=== PATIENT | female | born 1960 | race Caucasian/White ===

== ENCOUNTER → 2019-08-05 08:46 | Outpatient (BNVA) | payer MEDICARE, OTHER, SELFPAY | PROVIDERS: Family Provider Family Medicine; PCP Internal Medicine; Visit Provider Specialist | DX: G35 Multiple sclerosis (principal); Z87.891 Personal history of nicotine dependence | CPT/HCPCS: 36415; 96374; 96375; 96413; 96415; 99214; J1200; J2350; J2930; J7040 ==

== ENCOUNTER → 2019-11-07 10:04 | Outpatient (BNVA) | payer MEDICARE, OTHER, SELFPAY | PROVIDERS: Family Provider Internal Medicine; PCP Internal Medicine; Visit Provider Internal Medicine | DX: E11.9 Type 2 diabetes mellitus without complications (principal) | CPT/HCPCS: 83036 ==

== ENCOUNTER 2020-02-12 07:50 | Outpatient (CLI) | payer MEDICARE, OTHER, SELFPAY ==
[2020-02-12] MEDS: diphenhydrAMINE 50 mg/mL SDV 1mL 25 MG IVP (08:25)
[2020-02-12] MEDS: acetaminophen 500 mg Tablet 1000 MG PO (08:25)
== END 2020-02-12 07:51 | disposition home or self-care (01) ==
LOC: NSACUTE 07:51
PROVIDERS: Family Provider Internal Medicine; PCP Internal Medicine; Visit Provider Specialist
DX: G35 Multiple sclerosis (principal)
CPT/HCPCS: 96375; 99213; J1200; J2930

== ENCOUNTER → 2020-02-14 09:19 | Outpatient (BNVA) | payer MEDICARE, OTHER, SELFPAY | PROVIDERS: Family Provider Internal Medicine; PCP Internal Medicine; Visit Provider Internal Medicine | DX: E11.65 Type 2 diabetes mellitus with hyperglycemia (principal); G35 Multiple sclerosis; Z79.4 Long term (current) use of insulin; Z79.899 Other long term (current) drug therapy; Z87.891 Personal history of nicotine dependence | CPT/HCPCS: 80053; 80061; 82043; 83036; 84443; 85025 ==

== ENCOUNTER → 2020-05-21 10:53 | Outpatient (BNVA) | payer MEDICARE, OTHER, SELFPAY | PROVIDERS: Family Provider Internal Medicine; PCP Internal Medicine; Visit Provider Nurse Practitioner Family | DX: E10.9 Type 1 diabetes mellitus without complications (principal) | CPT/HCPCS: 83036 ==

== ENCOUNTER → 2020-08-03 08:27 | Outpatient (BNVA) | payer MEDICARE, OTHER, SELFPAY ==
[2020-08-03] MEDS: acetaminophen 500 mg Tablet 1000 MG PO (09:55)
[2020-08-03] MEDS: diphenhydrAMINE 50 mg/mL SDV 1mL 25 MG IVP (10:01)
== END ==
PROVIDERS: Family Provider Internal Medicine; PCP Internal Medicine; Visit Provider Specialist
DX: G35 Multiple sclerosis (principal)
CPT/HCPCS: 96365; 96366; 96375; 99214; J1200; J2350; J2930; J7040

== ENCOUNTER → 2020-08-20 09:51 | Outpatient (BNVA) | payer MEDICARE, SELFPAY | PROVIDERS: Family Provider Internal Medicine; PCP Internal Medicine; Visit Provider Internal Medicine | DX: E11.65 Type 2 diabetes mellitus with hyperglycemia (principal) | CPT/HCPCS: 80053; 80061; 83036; 85025 ==

== ENCOUNTER → 2020-08-21 09:00 | Outpatient (BNVA) | payer MEDICARE, SELFPAY | PROVIDERS: Family Provider Internal Medicine; PCP Internal Medicine; Visit Provider Internal Medicine | DX: E11.65 Type 2 diabetes mellitus with hyperglycemia (principal) | CPT/HCPCS: 84443 ==

== ENCOUNTER → 2020-11-20 09:43 | Outpatient (BNVA) | payer MEDICARE, SELFPAY | PROVIDERS: Family Provider Internal Medicine; PCP Internal Medicine; Visit Provider Nurse Practitioner Family | DX: E11.65 Type 2 diabetes mellitus with hyperglycemia (principal) | CPT/HCPCS: 83036 ==

== ENCOUNTER 2021-01-20 08:24 | Outpatient (CLI) | payer MEDICARE, SELFPAY ==
--- NOTE | 2021-01-20 08:48 | PC.NURSE ---
Dr. Maninder KU not to give solu-medrol d/t patient request for increased blood sugar levels.
[2021-01-20] MEDS: acetaminophen 500 mg Tablet 1000 MG PO (08:50)
[2021-01-20] MEDS: diphenhydrAMINE 50 mg/mL SDV 1mL 25 MG IVP (09:15)
== END 2021-01-20 08:25 | disposition home or self-care (01) ==
LOC: NSACUTE 08:31
PROVIDERS: Family Provider Internal Medicine; PCP Internal Medicine; Visit Provider Specialist
DX: G35 Multiple sclerosis (principal); E10.9 Type 1 diabetes mellitus without complications; G25.81 Restless legs syndrome; Z79.4 Long term (current) use of insulin
CPT/HCPCS: 96365; 96366; 96375; 99214; J1200; J2350; J7040

== ENCOUNTER → 2021-03-09 11:20 | Outpatient (BNVA) | payer MEDICARE, SELFPAY | PROVIDERS: Family Provider Internal Medicine; PCP Internal Medicine; Visit Provider Nurse Practitioner Family | DX: E11.65 Type 2 diabetes mellitus with hyperglycemia (principal); G25.81 Restless legs syndrome; Z79.899 Other long term (current) drug therapy | CPT/HCPCS: 80053; 80061; 82043; 83036; 84443; 85025 ==

== ENCOUNTER → 2021-06-10 10:07 | Outpatient (BNVA) | payer MEDICARE, SELFPAY | PROVIDERS: Family Provider Internal Medicine; PCP Internal Medicine; Visit Provider Internal Medicine | DX: E10.9 Type 1 diabetes mellitus without complications (principal) | CPT/HCPCS: 82043; 83036 ==

== ENCOUNTER 2021-07-19 09:35 | Outpatient (CLI) | payer MEDICARE, SELFPAY ==
[2021-07-19 10:00] VITALS: BP 145/85; PULSE 67; RESP 18; TEMP 36.7; O2SAT 99
[2021-07-19] MEDS: acetaminophen 500 mg Tablet 1000 MG PO (10:22)
[2021-07-19] MEDS: diphenhydrAMINE 50 mg/mL SDV 1mL 25 MG IVP (10:23)
[2021-07-19] MEDS: sodium chloride 0.9% 250 ML IV (10:27)
[2021-07-19 10:42] LABS: Ferritin 56 ng/mL (15-150); Iron 100 ug/dL (37-145); Percent Saturation 40.1 % (20-50); Total Iron Binding Capacity 249 mcg/dl; Unsaturated Iron Binding 149 ug/dL (112-347)
[2021-07-19 10:57] VITALS: BP 108/77; PULSE 67; RESP 18; TEMP 37; O2SAT 97
[2021-07-19 11:27] VITALS: BP 131/84; PULSE 61; RESP 16; TEMP 36.8; O2SAT 97
[2021-07-19 13:04] VITALS: BP 131/83; PULSE 67; RESP 18; TEMP 36.7; O2SAT 98
== END 2021-07-19 09:36 | disposition home or self-care (01) ==
PROVIDERS: PCP Family Medicine; Visit Provider Specialist
DX: G35 Multiple sclerosis (principal); E10.9 Type 1 diabetes mellitus without complications; Z79.4 Long term (current) use of insulin
CPT/HCPCS: 82728; 83540; 83550; 96365; 96366; 96375; 99213; 99214; J1200; J2350; J7040; J7050

== ENCOUNTER → 2021-09-09 09:22 | Outpatient (BNVA) | payer MEDICARE, SELFPAY | PROVIDERS: PCP Family Medicine; Visit Provider Internal Medicine | DX: E11.65 Type 2 diabetes mellitus with hyperglycemia (principal) | CPT/HCPCS: 80053; 80061; 83036; 84443; 85025 ==

== ENCOUNTER 2022-01-17 08:58 | Outpatient (CLI) | payer MEDICARE, SELFPAY ==
[2022-01-17 10:00] VITALS: BP 145/79; PULSE 65; RESP 18; TEMP 36.5; O2SAT 97
[2022-01-17] MEDS: sodium chloride 0.9% 250 ML 50 ML IV (10:20)
[2022-01-17] MEDS: acetaminophen 500 mg Tablet 1000 MG PO (10:21)
[2022-01-17] MEDS: diphenhydrAMINE 50 mg/mL SDV 1mL 25 MG IVP (10:23)
[2022-01-17 11:05] VITALS: BP 151/72; PULSE 59; RESP 18; TEMP 36.7; O2SAT 97
[2022-01-17 11:37] VITALS: BP 146/72; PULSE 53; RESP 18; TEMP 36.7; O2SAT 97
[2022-01-17 13:24] VITALS: BP 151/74; PULSE 60; RESP 18; TEMP 36.6; O2SAT 99
== END 2022-01-17 08:59 | disposition home or self-care (01) ==
PROVIDERS: PCP Family Medicine; Referring Provider Specialist; Visit Provider Specialist
DX: G35 Multiple sclerosis (principal)
CPT/HCPCS: 96365; 96366; 96375; J1200; J2350; J7040; J7050

== ENCOUNTER 2022-04-08 06:00 | Outpatient (RCR) | payer MEDICARE, SELFPAY | END 2022-04-08 23:55 | disposition home or self-care (01) | LOC: SPT 06:00 | PROVIDERS: PCP Family Medicine; Visit Provider Internal Medicine | DX: G35 Multiple sclerosis (principal); M54.9 Dorsalgia, unspecified | CPT/HCPCS: 97110; 97140; 97162 ==

== ENCOUNTER 2022-04-09 06:00 | Outpatient (RCR) | payer MEDICARE, SELFPAY | END 2022-05-09 23:59 | disposition home or self-care (01) | LOC: SPT 06:00 | PROVIDERS: PCP Family Medicine; Visit Provider Internal Medicine | DX: G35 Multiple sclerosis (principal); M54.9 Dorsalgia, unspecified | CPT/HCPCS: 97110; 97112; 97140; 97535 ==

== ENCOUNTER → 2023-02-03 09:48 | Outpatient (BNVA) | payer MEDICARE, SELFPAY | PROVIDERS: PCP Internal Medicine; Visit Provider Specialist | DX: G35 Multiple sclerosis | CPT/HCPCS: 99214 ==

== ENCOUNTER 2023-09-18 06:00 | Outpatient (RCR) | payer MEDICARE, SELFPAY | END 2023-10-08 23:59 | disposition home or self-care (01) | LOC: GPT 06:00 | PROVIDERS: PCP Internal Medicine; Visit Provider Internal Medicine | DX: M54.31 Sciatica, right side (principal) | CPT/HCPCS: 97110; 97112; 97140; 97162 ==

== ENCOUNTER 2023-10-09 06:00 | Outpatient (RCR) | payer MEDICARE, SELFPAY | END 2023-11-07 23:59 | disposition home or self-care (01) | LOC: GPT 06:00 | PROVIDERS: PCP Internal Medicine; Visit Provider Internal Medicine | DX: M54.31 Sciatica, right side (principal) | CPT/HCPCS: 97110; 97112; 97140 ==

== ENCOUNTER 2023-11-08 06:00 | Outpatient (RCR) | payer MEDICARE, SELFPAY | END 2023-12-08 23:59 | disposition home or self-care (01) | LOC: GPT 06:00 | PROVIDERS: PCP Internal Medicine; Visit Provider Internal Medicine | DX: M51.06 Intervertebral disc disorders with myelopathy, lumbar region (principal); M54.17 Radiculopathy, lumbosacral region | CPT/HCPCS: 97110; 97530 ==

== ENCOUNTER → 2024-01-31 09:29 | Outpatient (BNVA) | payer MEDICARE, SELFPAY | PROVIDERS: PCP Internal Medicine; Visit Provider Specialist | DX: R29.90 Unspecified symptoms and signs involving the nervous system (principal); G35 Multiple sclerosis | CPT/HCPCS: 99214 ==

== ENCOUNTER → 2025-02-03 11:49 | Outpatient (BNVA) | payer MEDICARE, SELFPAY | PROVIDERS: PCP Internal Medicine; Visit Provider Specialist | DX: G35 Multiple sclerosis (principal) | CPT/HCPCS: 99213 ==